=== PATIENT | female | born 1980 | race Caucasian/White ===

== ENCOUNTER → 2019-12-23 21:30 | Outpatient (CLI) | payer BC, SELFPAY ==
[2019-12-23 18:07] VITALS: BMI 23.6
[2019-12-23 21:46] LABS: Absolute Lymphocyte Count 3.11 X10^3/uL (0.83-4.51); Basophil# 0.05 X10^3/uL; Basophil% 0.4 % (0-1); Eosinophil# 0.16 X10^3/uL; Eosinophils% 1.3 % (0-5); Hematocrit 40.6 % (37-47); Hemoglobin 13.3 g/dL (12.0-15.0); Lymphocyte # 3.11 X10^3/ul (4.0); Lymphocyte % 25.7 % (19-41); Mean Corp Hgb Conc 32.8 g/dL (32-36); Mean Corpuscular Hgb 29.2 pg (27.0-32.0); Mean Platelet Vol. 10.4 fl (6.2-12.0); Monocyte# 0.79 X10^3/uL; Monocyte% 6.5 % (0-10); NRBC Flagged by Analyzer 0 % (0-5); Neutrophil # 7.98 X10^3/uL (2.7-7.7); Neutrophil % 65.9 % (47-70); Platelet Count 244 K/mm3 (150-450); RBC Distribution Width CV 12.7 % (11.6-14.6); RBC Distribution Width SD 41.6 fl (35.1-43.9); Red Blood Count 4.56 M/mm3 (4.2-5.4); White Blood Count 12.1 K/mm3 (4.4-11.0)
[2019-12-23 22:10] LABS: ALB/GLOB Ratio 0.9 RATIO (0.9-2.4); AST(SGOT) 15 U/L (15-37); Alanine Aminotransfer ALT/SGPT 36 U/L (13-56); Albumin, Serum 3.7 g/dL (3.2-5.0); Alkaline Phosphatase 102 U/L (45-117); Anion Gap 6 (5-15); BUN 13 mg/dL (7-18); BUN/Creat Ratio 15.6 RATIO (10-20); Chloride 102 mmol/L (98-107); Cholesterol 264 mg/dL (200); Creatinine, Serum 0.84 mg/dL (0.55-1.02); EST Glomerular Filtration Rate 80 mL/min (>60); Est Glom Filt Rate - Afr Amer 97 mL/min (>60); Globulin 4.3 g/dL (2.2-4.2); Glucose 87 mg/dL (74-106); High Density Lipoprotein 50 mg/dL; Sodium Level 135 mmol/L (136-145); Thyroid Stim Hormone (TSH) 0.85 uIU/mL (0.358-3.74); Triglycerides 151 mg/dL; Very Low Density Lipoprotein 30 mg/dL (5-40)
[2019-12-23 22:32] LABS: Hemoglobin A1c 5.7 % (3.8-5.6)
== END ==
PROVIDERS: Referring Provider Nurse Practitioner; Visit Provider Nurse Practitioner
DX: R53.83 Other fatigue (principal); E16.2 Hypoglycemia, unspecified; K21.9 Gastro-esophageal reflux disease without esophagitis
CPT/HCPCS: 80053; 80061; 83036; 84443; 85025

== ENCOUNTER → 2019-12-24 17:51 | Outpatient (CLI) | payer BC, SELFPAY ==
[2019-12-23 18:07] VITALS: BMI 23.6
== END ==
PROVIDERS: PCP Nurse Practitioner; Referring Provider Nurse Practitioner; Visit Provider Nurse Practitioner
DX: Z20.828 Contact with and (suspected) exposure to other viral communicable diseases (principal)
CPT/HCPCS: 87635; C9803; U0003

== ENCOUNTER → 2020-01-05 | Outpatient (CLI) | payer BC, SELFPAY ==
--- NOTE | 2020-01-05 | TISS_PTH ---
PATIENT: ALE SMITH [facility]: [facility]#:[id number] AGE/SX: 39/F ROOM: RE01/05/[address]: EFRAIN Pope : 1980 BED: DIS: 01/05/2020 SPEC #: [id number] RECD: 01/06/20 08:07 STATUS: CHANCE VAHE #: [id number] YVETTE: 01/05/20 00:[address]: Allyssa Fagan NP DEPT: SURGICAL PATHOLOGY RECD BY: Loc Stanley Tissues: TISSUE SURGICALLY REMOVED Procedures: Special Stain Group I Surgery Specimen Level IV GMS Stain (control) HEADER OPERATION: Skin biopsy PRE-OP DIAGNOSIS: L98.9 TISSUE SUBMITTED: Skin biopsy MICROSCOPIC DIAGNOSIS Skin, biopsy: A piece of skin with dermal fibrosis, chronic inflammation and reactive changes. Special stain for fungi is negative for organisms; matched control is appropriate. See comment. ARELY:cheri 01/07/20 COMMENT Clinical correlation and appropriate follow up are necessary. MICROSCOPIC DESCRIPTION Slides are reviewed. GROSS DESCRIPTION Received is one container labeled with the patient's name and not further designated. The specimen consists of a single discoid fragment of rivero tissue measuring 0.6 cm in diameter and 0.2 cm in thickness. The specimen is inked, bisected and totally submitted in one cassette. / AM:cheri 01/06/20 TC:5 CPT: 40567, 26582
[2020-01-05 17:57] VITALS: BMI 23.6
[2020-01-05 22:17] LABS: Pathology Skin Biopsy SEE PATHOLOGY REPORT
== END | disposition home or self-care (01) ==
PROVIDERS: Visit Provider Nurse Practitioner
DX: L98.9 Disorder of the skin and subcutaneous tissue, unspecified (principal)
CPT/HCPCS: 88305; 88312